=== PATIENT | male | born 1965 | race African-American/Black ===

== ENCOUNTER 2023-07-18 11:16 | Emergency (ER) | payer OTHER ==
[~2023-07-18] VITALS: Ht 170.2 cm; Wt 81.0 kg
[~2023-07-18 11:16] MED LIST: ALBU6.7H3 INH; AMLO5TAB4 PO; ARIP10TA56 PO; ATROV INH; AZIT500T8 MT; IPRA3AMP9 NEB; OMEP40CA20 PO; P20 MT; QUET100T PO
[2023-07-18 11:38] VITALS: O2SAT 100
[2023-07-18] MEDS ORDERED: NAPR-681 PO (12:00)
[2023-07-18] MEDS: KETOROLAC 60MG/2ML VIAL IM NR (12:11)
[2023-07-18 12:25] VITALS: BP 143/80; PULSE 60; RESP 18; TEMP 98.7
== END 2023-07-18 12:27 | disposition home or self-care (01) ==
LOC: ER 11:16
DX: M25.562 Pain in left knee (principal); I10 Essential (primary) hypertension; J45.909 Unspecified asthma, uncomplicated
CPT/HCPCS: 99283; 73562; 96372; J1885